=== PATIENT | male | born 1985 | race African-American/Black ===

== ENCOUNTER 2020-01-03 04:07 | Emergency (ER) | payer MEDICAID ==
[~2020-01-03] VITALS: Ht 175.3 cm; Wt 81.8 kg
[2020-01-03 04:09] VITALS: BP 136/86
== END 2020-01-03 05:03 | disposition left against medical advice (07) ==
LOC: EMS 04:07
DX: Z53.21 Procedure and treatment not carried out due to patient leaving prior to being seen by health care provider (principal)